=== PATIENT | male | born 1985 | race Caucasian/White ===

== ENCOUNTER 2021-04-12 07:55 | Emergency (ER) | payer BC ==
[~2021-04-12] VITALS: Ht 177.8 cm; Wt 93.0 kg
[~2021-04-12 07:55] MED LIST: BACTRIM DS1 TAB PO; BENADRYL 50MG C50 MG PO; LORTAB5 PO; MEDDOSEPAK PO; NO; PEPCID20 MG PO; ROBITUSSIN AC OR; SEPTRA DS1 TAB OR; ZPAK OR; [UNRECOGNIZED DRUG - REMARK]
[2021-04-12 08:42] LABS: HEMATOCRIT 48.3 % (39.0-50.0); HEMOGLOBIN 16.6 g/dl (14.0-18.0); IMMATURE GRANULOCYTES 0.3 % (0.0-5.0); MEAN CELL VOLUME 85.9 fL CALC (80.0-100.0); MEAN CORPUSCULAR HGB 29.5 pG CALC (26.0-32.0); MEAN CORPUSCULAR HGB CONC 34.4 g/dL CAL (32.0-36.0); NEUT# 11.75 thou/uL (1.82-7.42); RED BLOOD COUNT 5.62 mill/uL (4.70-6.10); RED CELL DISTRI WIDTH 12.6 % (11.5-15.5)
[2021-04-12 09:10] LABS: ALKALINE PHOSPHATASE 53 u/l (38-126); ANION GAP 16 (6-22 (CALC)); BILIRUBIN, TOTAL 0.6 mg/dL (0.0-1.4); BUN 14 mg/dL (9-20); BUN/CREATININE RATIO 12 (12-20 (CALC)); CARBON DIOXIDE 22 mmol/l (22-30); CHLORIDE 105 mmol/l (95-108); CREATININE 1.1 mg/dL (0.7-1.3); GFR > 60 ML/MIN (>=60 (CALC)); GFR FOR AFR.AMER. > 60 ML/MIN (>=60 (CALC)); POTASSIUM 4.1 mmol/l (3.5-5.1); SGOT/AST 29 u/l (17-59); SODIUM 138 mmol/l (137-146); TOTAL PROTEIN 8.3 g/dL (6.3-8.2)
[2021-04-12 09:43] LABS: URINE BILIRUBIN - DIPSTICK NEGATIVE (NEGATIVE); URINE BLOOD DIPSTICK LARGE (NEGATIVE); URINE COLOR YELLOW; URINE GLUCOSE - DIPSTICK NEGATIVE (NEGATIVE); URINE KETONE NEGATIVE (NEGATIVE); URINE LEUK ESTERASE NEGATIVE (NEGATIVE); URINE PH 6.5 (4.5-8.0); URINE PROTEIN - DIPSTICK NEGATIVE (NEG-TRACE); URINE UROBILINOGEN - DIPSTICK 0.2 E.U./dL (0.2)
[2021-04-12 09:44] LABS: URINE NITRITE - DIPSTICK NEGATIVE (Negative)
[2021-04-12] MEDS ORDERED: TORADOL PO (09:57)
[2021-04-12] MEDS ORDERED: TAMSULOSIN0.4 MG PO (09:57)
[2021-04-12] MEDS ORDERED: ZOFRAN4 M1 PO (09:57)
[2021-04-12 10:06] VITALS: BP 110/60
== END 2021-04-12 10:13 | disposition home or self-care (01) | DRG 694 ==
LOC: ED 07:55
PROVIDERS: Emergency Medicine
DX: N20.1 Calculus of ureter (principal); F17.210 Nicotine dependence, cigarettes, uncomplicated; Z87.442 Personal history of urinary calculi